=== PATIENT | female | born 1960 | race African-American/Black ===

== ENCOUNTER 2019-06-09 13:59 | Inpatient (IN) | payer OTHER ==
[2019-06-09] VITALS (7 sets, daily range): BP systolic 104–122; BP diastolic 72–87
[~2019-06-09] VITALS: Ht 165.1 cm; Wt 40.8 kg
--- NOTE | 2019-06-09 14:19 | Emergency Room Report ---
History of Present Illness General Chief Complaint: General Complaint Source: Patient Present Illness HPI Disclaimer: Please note that this report is being documented using [employer] technology. This can lead to erroneous entry secondary to incorrect interpretation by the dictating instrument. HPI: 59-year-old female with a history of pancreatic cancer with multiple metastases currently undergoing chemotherapy presents for evaluation of palpitations, hypotension and weakness. Patient was at rest watching television on the couch earlier this morning when she felt her heart beating out of her chest. She denied chest pain at that time however states she has had some intermittent chest pain recently and may have been diagnosed with a pulmonary embolism last month at an outside facility. She denied any shortness of breath. The palpitations have now resolved. When EMS found her she was hypotensive and weak. Systolic blood pressures were in the mid 80s. She responded to an IV fluid bolus en route. The patient states she has not been eating or drinking very much lately due to lack of appetite secondary to her chemotherapy medications. Denies any recent vomiting or diarrhea. Denies fevers, chills, cough, shortness of breath, leg swelling. Currently she is chest pain-free. PMH: Pancreatic cancer with metastases PSH: Tumor resection Allergies: Denies Social Hx: Denies drug, tobacco alcohol use Allergies: Coded Allergies: No Known Allergies (Unverified , 06/09/19) Nursing Documentation-PMH Hx Cancer: Yes - PANCREATIC CANCER Review of Systems All Other Systems: negative except mentioned in HPI Physical Exam Vital Signs Date Time Temp Pulse Resp B/P (MAP) Pulse Ox O2 Delivery O2 Flow Rate FiO2 06/09/19 13:49 97.3 102 20 102/60 (74) 97 Room Air General: Awake and alert, no acute distress. Frail and cachectic, appears fatigued HEENT: NC/AT. EOMI. PERRLA. Pale conjunctiva. Dry mucous membranes Chest Wall: No tenderness, no deformity. Access port in the right upper chest Cardiovascular: Tachycardic. S1 and S2 normal. No murmur appreciated Resp: Mild tachypnea. Normal work of breathing. No cough, wheezing or crackles appreciated Abdomen: Abdomen is soft, nondistended. Nontender Skin: Intact. No abrasions, laceration or rash over the exposed skin MSK: Low muscle bulk. Normal tone. Moving all extremities. No obvious deformity. Neuro: Awake and alert. Mentating appropriately. Medical Decision Making Diagnostic Impression: Primary Impression: Palpitations Additional Impressions: Near syncope Failure to thrive Acidosis Thrombocytosis Microcytic anemia Elevated alkaline phosphatase level Elevated CK Hypotension ER Course 59-year-old female currently undergoing chemotherapy for metastatic pancreatic cancer presents for evaluation of palpitations, tachycardia, hypotension and fatigue. She has not been eating and drinking very much and this may be related to dehydration, lecture light abnormalities, malnutrition. She is tachycardic but no longer complaining of palpitations or chest pain though she has had intermittent chest pain over the past few weeks. She states she may have been diagnosed with a pulmonary embolism however she has not fully sure. Will wait for family to provide additional information when they arrived. She has not hypoxic and denies any shortness of breath currently. We will start a broad metabolic and infectious work-up for weakness and hypotension. Blood pressures are stable on arrival though she was noted to be hypotensive in the 80s. She would likely require admission. Will provide additional IV bolus. Laboratory Tests Test 06/09/19 14:35 06/09/19 15:00 White Blood Count 6.9 K/UL (4.8-10.8) Red Blood Count 4.98 M/UL (4.20-5.40) Hemoglobin 10.1 G/DL (12.0-16.0) L Hematocrit 34.8 % (37.0-47.0) L Mean Corpuscular Volume 70 FL (80-99) L Mean Corpuscular Hemoglobin 20.3 PG (27.0-31.0) L Mean Corpuscular Hemoglobin Concent 29.1 G/DL (32.0-36.0) L Red Cell Distribution Width 21.0 % (11.6-14.8) H Platelet Count 509 K/UL (150-450) H Mean Platelet Volume 8.4 FL (6.5-10.1) Neutrophils (%) (Auto) % (45.0-75.0) Lymphocytes (%) (Auto) % (20.0-45.0) Monocytes (%) (Auto) % (1.0-10.0) Eosinophils (%) (Auto) % (0.0-3.0) Basophils (%) (Auto) % (0.0-2.0) Differential Total Cells Counted 100 Neutrophils % (Manual) 68 % (45-75) Lymphocytes % (Manual) 21 % (20-45) Monocytes % (Manual) 9 % (1-10) Eosinophils % (Manual) 2 % (0-3) Basophils % (Manual) 0 % (0-2) Band Neutrophils 0 % (0-8) Platelet Estimate Increased H Platelet Morphology Giant Platelets Occasional Polychromasia 2+ Hypochromasia 2+ Anisocytosis 3+ Microcytosis 2+ Prothrombin Time 12.3 SEC (9.30-11.50) H Prothrombin Time INR 1.2 (0.9-1.1) H PTT 27 SEC (23-33) Sodium Level 144 MMOL/L (136-145) Potassium Level 4.0 MMOL/L (3.5-5.1) Chloride Level 108 MMOL/L (98-107) H Carbon Dioxide Level 26 MMOL/L (21-32) Anion Gap 10 mmol/L (5-15) Blood Urea Nitrogen 9 mg/dL (7-18) Creatinine 0.7 MG/DL (0.55-1.30) Estimate Glomerular Filtration Rate > 60 mL/min (>60) Glucose Level 116 MG/DL (74-106) H Uric Acid 3.6 MG/DL (2.6-7.2) Calcium Level 9.2 MG/DL (8.5-10.1) Phosphorus Level 4.0 MG/DL (2.5-4.9) Magnesium Level 1.9 MG/DL (1.8-2.4) Total Bilirubin 0.3 MG/DL (0.2-1.0) Aspartate Amino Transferase (AST) 95 U/L (15-37) H Alanine Aminotransferase (ALT) 19 U/L (12-78) Alkaline Phosphatase 386 U/L (46-116) H Total Creatine Kinase 631 U/L (26-308) H Troponin I 0.035 ng/mL (0.000-0.056) Total Protein 6.6 G/DL (6.4-8.2) Albumin 2.1 G/DL (3.4-5.0) L Globulin 4.5 g/dL Albumin/Globulin Ratio 0.5 (1.0-2.7) L Lactic Acid Level Pending EKG Diagnostic Results EKG Time: 14:15 Rate: tachycardiac Rhythm: NSR ST Segments: no acute changes Other Impression Sinus tachycardia, rate in the 120s. Normal axis, normal intervals, no ST segment changes. Rhythm Strip Diag. Results Rhythm Strip Time: 14:15 EP Interpretation: yes Rate: 120s Rhythm: NSR, no PVC's, no ectopy Chest X-Ray Diagnostic Results Chest X-Ray Diagnostic Results : Chest X-Ray Ordered: Yes # of Views/Limited/Complete: 1 View Indication: Chest Pain Interpretation: no consolidation, no effusion, no pneumothorax Impression: No acute disease Electronically Signed by: Electronically signed by Dr. Toney Duncan Reevaluation Time: 14:25 Last Vital Signs Date Time Temp Pulse Resp B/P (MAP) Pulse Ox O2 Delivery O2 Flow Rate FiO2 06/09/19 13:49 97.3 102 20 102/60 (74) 97 Room Air Reevaluation Impression Family arrived and stated the patient was on Eliquis for a pulmonary embolism diagnosed several weeks ago. We will repeat a CTA of the chest to rule out hemodynamically significant PE 1654: Labs show microcytic anemia with a hemoglobin of 10.1 and MCV of 70. Elevated platelet count at 509. Labs show an elevated lactate of 2.4 as well as an elevated CK and alkaline phosphatase. Uric acid is within normal limits at 3.6. The patient continues to see receive IV fluids. No evidence of urinary tract infection. CT of the chest does not show significant pulmonary embolism. The patient will be transferred according to their insurance plan and stable for admission to telemetry service. I discussed with Dr. Nielsen who will facilitate transfer. Family was updated bedside. They understand agree with this treatment plan. 1830 Unable to arrange transfer for the patient. She will be admitted to our facility for further management Disposition: ADMITTED INPATIENT Condition: Serious Toney Duncan MD Jun 09, 2019 14:19
--- NOTE | 2019-06-09 14:20 | NUR ---
ED Nurse Note: Patient was brought in to ER by RA due to hypotension, patient was c/o palpitation and dizziness. Patient denies any chest pain or SOB at this time. Patient is awake, aox4. Patient states she has not been eating or drinking adequately due to no appetite. Patient has hx of pancreatic cancer, has right subclavian port a cath for chemo.
[2019-06-09] MEDS ORDERED: OMEPRAZOLE20 M2 ORAL ×2 (14:26→20:23)
[2019-06-09] MEDS ORDERED: ELIQUIS2.5 MG PO (14:26)
[2019-06-09] MEDS ORDERED: IBUPROFEN600 MG ORAL (14:26)
[2019-06-09] MEDS ORDERED: MORPHINE IR15 MG ORAL ×2 (14:26→20:21)
[2019-06-09] MEDS ORDERED: NORCO 5-325 TA1 EACH ORAL (14:26)
[2019-06-09] MEDS ORDERED: Omnipaue 350mg/ml 100ml vial INJ PRN (14:30)
[2019-06-09 15:12] LABS: HEMATOCRIT 34.8 % (37.0-47.0); HEMOGLOBIN 10.1 G/DL (12.0-16.0); MEAN CORPUSCULAR VOLUME 70 FL (80-99); PLATELET COUNT 509 K/UL (150-450); RED BLOOD COUNT 4.98 M/UL (4.20-5.40); WHITE BLOOD COUNT 6.9 K/UL (4.8-10.8)
[2019-06-09 15:22] LABS: INR 1.2 (0.9-1.1)
[2019-06-09 15:24] LABS: ANION GAP 10 mmol/L (5-15); BLOOD UREA NITROGEN 9 mg/dL (7-18); CALCIUM 9.2 MG/DL (8.5-10.1); CARBON DIOXIDE 26 MMOL/L (21-32); CHLORIDE 108 MMOL/L (98-107); CREATININE 0.7 MG/DL (0.55-1.30); SODIUM 144 MMOL/L (136-145)
[2019-06-09 15:28] LABS: ALANINE AMINOTRANSFERASE 19 U/L (12-78); ALBUMIN 2.1 G/DL (3.4-5.0); ALBUMIN/GLOBULIN RATIO 0.5 (1.0-2.7); ALKALINE PHOSPHATASE 386 U/L (46-116); ASPARTATE AMINO TRANSFERASE 95 U/L (15-37); BILIRUBIN,TOTAL 0.3 MG/DL (0.2-1.0); CREATINE KINASE 631 U/L (26-308)
--- NOTE | 2019-06-09 15:41 | Diagnostic Imaging Report ---
Indication: Chest pain Comparison: None A single view chest radiograph was obtained. Findings: No definite infiltrate or pulmonary vascular congestion identified. The heart is normal in size. There is a right chest port in good position.. The aorta is mildly enlarged consistent with atherosclerotic vascular disease. The bones are osteopenic. Impression: No acute disease
--- NOTE | 2019-06-09 16:05 | NUR ---
ED Nurse Note: Patient back from CT.
[2019-06-09 16:34] LABS: APPEARANCE,URINE CLEAR; BILIRUBIN, URINE NEGATIVE (NEGATIVE); GLUCOSE, URINE (UA) NEGATIVE (NEGATIVE); KETONES,URINE NEGATIVE (NEGATIVE); LEUKOCYTE ESTERASE ,URINE NEGATIVE (NEGATIVE); NITRITE,URINE NEGATIVE (NEGATIVE); PH,URINE 5 (4.5-8.0); PROTEIN,URINE NEGATIVE (NEGATIVE); UROBILINOGEN,URINE 1 MG/DL (0.0-1.0)
[2019-06-09 16:36] LABS: COLOR,URINE YELLOW
--- NOTE | 2019-06-09 16:41 | Diagnostic Imaging Report ---
Indication: Chest pain Technique: Continuous helical transaxial imaging of the chest was obtained from the thoracic inlet to the upper abdomen during rapid intravenous contrast administration. Arterial phase of enhancement obtained. Coronal 2-D reformats were also obtained and maximum intensity projection images in multiple planes. Study obtained in a Siemens sensation [address] Automatic Exposure Control was utilized. Total Dose length Product (DLP): 302.[address] Dose Index Volume (CTDIvol): 21.4 mGy Comparison: None Findings: Pulmonary artery is reasonably opacified and there is no evidence of pulmonary embolus. The aorta is mildly ectatic without evidence of aneurysm or dissection. The study is significantly degraded by the presence of a breathing motion. There are scattered lung nodules consistent with metastatic neoplasm within both lungs. The liver is moderately hypodense. Pneumobilia noted. Patient is cachectic. No adenopathy appreciated within the chest. There is a right chest port which is in good position. There is a T6 compression fracture acuity indeterminate. The bones are heterogeneous with areas of a lucency suspicious for metastatic neoplasm. IMPRESSION: Suboptimal evaluation of the pulmonary artery without obvious evidence for pulmonary embolus. Study also limited by motion. Aorta without evidence of dissection or aneurysm. Pulmonary nodules suspicious for metastatic neoplasm. Heterogeneous lucency scattered throughout the osseous structures consistent with metastatic neoplasm. Suggest correlation with bone scan. Mild compression fracture deformity of the T6 vertebra, acuity indeterminate. Moderate fatty liver. Pneumobilia. Right chest port The CT scanner at [facility] is accredited by the [employer] and the scans are performed using dose optimization techniques as appropriate to a performed exam including Automatic Exposure control.
--- NOTE | 2019-06-09 17:15 | NUR ---
ED Nurse Note: Patient c/o lower back pain. Dr. Velazquez notified.
[2019-06-09] MEDS ORDERED: Morphine Sulfate 4mg/ml Inj (IV USE ONLY) IVP ONE (17:45)
--- NOTE | 2019-06-09 18:13 | NUR ---
ED Nurse Note: Patient c/o pain in left hand IV site. removed IV. right AC IV, asymptomatic.
--- NOTE | 2019-06-09 19:05 | NUR ---
ED Nurse Note: Received report from URVASHI Milner. Pt alert, oriented, verbally responisve. 108/86 BP. No SOB. VSS.
--- NOTE | 2019-06-09 19:45 | NUR ---
Lv white in EDM - 06/09/19 at 2034 by ASHWIN ED Note: Report given to Marlene LANDIN from [facility].
--- NOTE | 2019-06-09 19:45 | NUR ---
ED Nurse Note: Report given to Marlene LANDIN from Telemetry.
--- NOTE | 2019-06-09 19:48 | NUR ---
TRANSFER TO FLOOR: Patient transferred to Telemetry. Report given to Marlene LANDIN. Pt alert and oriented, verbally responsive. No SOB. BP 108/ 86 and HR 119, MD aware. IV line on right AC 20g patent and intact. No skin issues.Family aware of transfer.
[2019-06-09] MEDS ORDERED: NORCO 10-325 T1 EACH ORAL (20:21)
[2019-06-09] MEDS ORDERED: MOTRIN IB200 MG ORAL (20:21)
--- NOTE | 2019-06-09 20:35 | History and Physical ---
History of Present Illness General Date patient seen: Jun 09, 2019 Reason for Hospitalization: General Complaint Present Illness HPI There is a 59-year-old female with a past medical history of stage IV pancreatic cancer with metastases to lungs and bones on chemotherapy presents for evaluation of palpitations, hypotension and weakness. Patient was at rest watching television on the couch earlier this morning when she felt her heart beating out of her chest. She denied chest pain at that time however states she has had some intermittent chest pain recently and may have been diagnosed with a pulmonary embolism last month at an outside facility. She denied any shortness of breath. The palpitations have now resolved. When EMS found her she was hypotensive and weak. Systolic blood pressures were in the mid 80s. She responded to an IV fluid bolus en route. The patient states she has not been eating or drinking very much lately due to lack of appetite secondary to her chemotherapy medications. Denies any recent vomiting or diarrhea. Denies fevers, chills, cough, shortness of breath, leg swelling. Currently she is chest pain-free. Patient is also complaining of right leg pain for the past month. No swelling or trauma. Constant, 5 out of 10, nonradiating. In the ER the patient had a temperature 98.1 pulse 81 blood pressure 104/81 respirations 19 saturating 100% on room air. CBC unremarkable. Laird panel remarkable for elevated alk phos 386, CK 631 initial troponin 0 0.035 initial lactate 2.4 which improved to 1.8 with fluids. UA negative, chest x-ray negative. EKG sinus tachycardic. CT pulmonary angiogram negative for pulmonary embolism but showed pulmonary and rib metastasis as well as old T6 compression fracture Allergies: none Meds: reviewed Pmhx: see HPI Surgical Hx: 2016 right inguinal hernia repair and tumor resection and SBO Family history: no cancers Social hx: No tobacco, etoh, or drug use Allergies: Coded Allergies: No Known Allergies (Unverified , 06/09/19) Medication History Scheduled Apixaban (Eliquis), 2.5 MG PO BID, (Reported) Ibuprofen* (Motrin Ib*), 200 MG ORAL Q6H, (Reported) Morphine HCl (Morphine Sulfate ER), 15 MG ORAL Q12HR, (Reported) Omeprazole (Omeprazole), 20 MG ORAL DAILY, (Reported) Omeprazole (Omeprazole), 20 MG ORAL DAILY, (Reported) Scheduled PRN Hydrocodone Bit/Acetaminophen 10-325* ([place] 10-325*), 1 TAB ORAL Q6H PRN for Breakthrough Pain, (Reported) Patient History Healthcare decision maker Resuscitation status Full Advanced Directive on File Review of Systems Constitutional: Reports: malaise, weakness; Denies: see HPI, chills, sweats, fever, other Eye: Denies: see HPI, eye pain, blurred vision, tearing, double vision, nose pain, nose congestion, acuity changes, discharge, other ENT: Denies: see HPI, ear pain, ear discharge, nose pain, nose congestion, throat pain, throat swelling, mouth pain, hearing loss, nasal discharge, other Respiratory: Denies: see HPI, cough, orthopnea, shortness of breath, stridor, wheezing, MOON, sputum, other Cardiovascular: Denies: see HPI, chest pain, edema, palpitations, syncope, PND , other Gastrointestinal: Denies: see HPI, abdominal pain, constipation, diarrhea, nausea, vomiting, melena, hematemesis, other Genitourinary: Denies: see HPI, discharge, dysuria, frequency, hematuria, pain , retention, incontinence, urgency, vag bleed/dc, other Musculoskeletal: Denies: see HPI, back pain, gout, joint pain, joint swelling, muscle pain, muscle stiffness, other Skin: Denies: see HPI, rash, change in color, change in hair/nails, dryness, lesions, other Psychiatric: Denies: see HPI, prior hx, anxiety, depressed feelings, emotional problems, SI, HI, hallucinations, other Neurological: Denies: see HPI, headache, numbness, paresthesia, seizure, tingling, tremors, focal weakness, syncope, dizziness, other Endocrine: Denies: see HPI, excessive sweating, flushing, intolerance to temperature, increased thirst, increased urine, unexplained weight loss, other Hematologic/Lymphatic: Denies: see HPI, anemia, blood clots, easy bleeding, easy bruising, swollen glands, diathesis, other Physical Exam General Appearance: WD/WN, no apparent distress, other - cacthetcic Lines, tubes and drains: peripheral HEENT: normocephalic, atraumatic, anicteric Neck: non-tender, normal alignment, supple Respiratory/Chest: chest wall non-tender, lungs clear, normal breath sounds, no respiratory distress, other - Right Port-A-Cath in place without surrounding erythema warmth or tenderness Cardiovascular/Chest: normal peripheral pulses, normal rate, regular rhythm, no JVD Abdomen: normal bowel sounds, non tender, soft, no organomegaly, no mass Extremities: normal range of motion, non-tender, normal inspection, other - Right hip tender to palpation, no deformity seen Skin Exam: normal pigmentation, warm/dry 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, no motor/sensory deficits, alert, oriented x 3 Lymphatic: anterior cervical - No lymphadenopathy Musculoskeletal: normal muscle bulk, no effusion Last 24 Hour Vital Signs Date Time Temp Pulse Resp B/P (MAP) Pulse Ox O2 Delivery O2 Flow Rate FiO2 06/09/19 18:00 117 20 118/87 100 Room Air 06/09/19 17:00 116 19 119/80 100 Room Air 06/09/19 16:00 120 21 122/75 100 Room Air 06/09/19 15:00 122 21 110/77 100 Room Air 06/09/19 14:10 81 19 Room Air 06/09/19 14:10 98.1 121 18 104/81 100 Room Air 06/09/19 13:49 97.3 102 20 102/60 (74) 97 Room Air Laboratory Tests Test 06/09/19 14:35 06/09/19 15:00 06/09/19 16:15 06/09/19 16:45 White Blood Count 6.9 K/UL (4.8-10.8) Red Blood Count 4.98 M/UL (4.20-5.40) Hemoglobin 10.1 G/DL (12.0-16.0) L Hematocrit 34.8 % (37.0-47.0) L Mean Corpuscular Volume 70 FL (80-99) L Mean Corpuscular Hemoglobin 20.3 PG (27.0-31.0) L Mean Corpuscular Hemoglobin Concent 29.1 G/DL (32.0-36.0) L Red Cell Distribution Width 21.0 % (11.6-14.8) H Platelet Count 509 K/UL (150-450) H Mean Platelet Volume 8.4 FL (6.5-10.1) Neutrophils (%) (Auto) % (45.0-75.0) Lymphocytes (%) (Auto) % (20.0-45.0) Monocytes (%) (Auto) % (1.0-10.0) Eosinophils (%) (Auto) % (0.0-3.0) Basophils (%) (Auto) % (0.0-2.0) Differential Total Cells Counted 100 Neutrophils % (Manual) 68 % (45-75) Lymphocytes % (Manual) 21 % (20-45) Monocytes % (Manual) 9 % (1-10) Eosinophils % (Manual) 2 % (0-3) Basophils % (Manual) 0 % (0-2) Band Neutrophils 0 % (0-8) Platelet Estimate Increased H Platelet Morphology Giant Platelets Occasional Polychromasia 2+ Hypochromasia 2+ Anisocytosis 3+ Microcytosis 2+ Prothrombin Time 12.3 SEC (9.30-11.50) H Prothromb Time International Ratio 1.2 (0.9-1.1) H Activated Partial Thromboplast Time 27 SEC (23-33) Sodium Level 144 MMOL/L (136-145) Potassium Level 4.0 MMOL/L (3.5-5.1) Chloride Level 108 MMOL/L (98-107) H Carbon Dioxide Level 26 MMOL/L (21-32) Anion Gap 10 mmol/L (5-15) Blood Urea Nitrogen 9 mg/dL (7-18) Creatinine 0.7 MG/DL (0.55-1.30) Estimat Glomerular Filtration Rate > 60 mL/min (>60) Glucose Level 116 MG/DL (74-106) H Uric Acid 3.6 MG/DL (2.6-7.2) Calcium Level 9.2 MG/DL (8.5-10.1) Phosphorus Level 4.0 MG/DL (2.5-4.9) Magnesium Level 1.9 MG/DL (1.8-2.4) Total Bilirubin 0.3 MG/DL (0.2-1.0) Aspartate Amino Transf (AST/SGOT) 95 U/L (15-37) H Alanine Aminotransferase (ALT/SGPT) 19 U/L (12-78) Alkaline Phosphatase 386 U/L (46-116) H Total Creatine Kinase 631 U/L (26-308) H Troponin I 0.035 ng/mL (0.000-0.056) Total Protein 6.6 G/DL (6.4-8.2) Albumin 2.1 G/DL (3.4-5.0) L Globulin 4.5 g/dL Albumin/Globulin Ratio 0.5 (1.0-2.7) L Lactic Acid Level 2.40 mmol/L (0.4-2.0) H 1.80 mmol/L (0.66-2.22) Urine Color Yellow Urine Appearance Clear Urine pH 5 (4.5-8.0) Urine Specific [place] 1.015 (1.005-1.035) Urine Protein Negative (NEGATIVE) Urine Glucose (UA) Negative (NEGATIVE) Urine Ketones Negative (NEGATIVE) Urine Blood Negative (NEGATIVE) Urine Nitrite Negative (NEGATIVE) Urine Bilirubin Negative (NEGATIVE) Urine Urobilinogen 1 MG/DL (0.0-1.0) H Urine Leukocyte Esterase Negative (NEGATIVE) Height (Feet): 5 Height (Inches): 5.00 Weight (Pounds): 90 Medications Current Medications Medications (Trade) Dose Ordered Sig/Mari Route PRN Reason Start Time Stop Time Status Last Admin Dose Admin Iohexol (Omnipaque) 100 mg NOW PRN INJ Radiology Procedure 06/09/19 14:30 06/11/19 14:23 Assessment/Plan Problem List: (1) Hypotension ICD Codes: I95.9 - Hypotension, unspecified SNOMED: 31807501 (2) Sinus tachycardia ICD Codes: R00.0 - Tachycardia, unspecified SNOMED: 81704480 (3) Near syncope ICD Codes: R55 - Syncope and collapse SNOMED: 384315857 (4) Failure to thrive SNOMED: 84143884 (5) Palpitations ICD Codes: R00.2 - Palpitations SNOMED: 38297914 (6) Elevated alkaline phosphatase level ICD Codes: R74.8 - Abnormal levels of other serum enzymes SNOMED: 767948323 (7) Elevated CK ICD Codes: R74.8 - Abnormal levels of other serum enzymes SNOMED: 127932369 (8) Thrombocytosis ICD Codes: D47.3 - Essential (hemorrhagic) thrombocythemia SNOMED: 0606833 (9) Microcytic anemia ICD Codes: D50.9 - Iron deficiency anemia, unspecified SNOMED: 796638289 (10) Acidosis ICD Codes: E87.2 - Acidosis SNOMED: 50756737 Status: progressing Assessment/Plan: Is a 59 year old female with a past medical history of stage IV pancreatic cancer with metastases to bones and lungs on chemotherapy presenting with palpitations, hypotension which resolved with IV fluids #hypotension, suspect 2/2 dehydration. no other SIRS criteria. Do not suspect infection at this point. #lactic acidosis secondary to malignancy and dehydration. Do not suspect infection at this point #near syncope #palpitations suspected 2/2 dehydration #sinus tachycardia suspected 2/2 dehydration -Admit to telemetry 2D echocardiogram Trend troponins Blood cultures x2 Trend lactate Holding off on antibiotics for now Normal saline at 100 cc/h #Right leg pain, rule out DVT. Duplex venous ultrasound of right leg #Stage IV pancreatic cancer mets to bone and lung on chemotherapy >PCP Dr. Wilhelm >Oncologist Aden Bauman - outpatient f/u FENPPX DVTPPX: lovenox GI PPX: None needed Fluids: As above Diet: Regualr Lines: Peripheral PT/OT: pending Code status: Fulle Dispo: Home with home health vs. SNF Reason for Continued Hospitalization: Hypotension 72 minutes spent on this encounter. Discussed with RN, patient, ED staff. > 50% spent on counseling and care coordination. Time of note may not reflect time patient was seen. Telly Glover D.O. Jun 09, 2019 20:35
--- NOTE | 2019-06-09 20:39 | NUR ---
NURSE NOTES: Called Dr. Carrion's exchange for admission orders. Awaiting callback.
[2019-06-09] MEDS ORDERED: Miralax 17gm pkt ORAL PRN (20:45)
--- NOTE | 2019-06-09 20:56 | NUR ---
NURSE NOTES: Received orders from Dr. You to continue Morphine Sulfate ER 15 mg PO Q12hr medication. Noted and carried out.
[2019-06-09] MEDS ORDERED: Enoxaparin 40mg Inj SUBQ SCH (21:00)
[2019-06-09] MEDS: HYDROcodone/Acetamin 10/325 tab ORAL PRN (21:26)
[2019-06-10] VITALS: BP 113/76
[2019-06-10] MEDS: HYDROcodone/Acetamin 5/325 tab ORAL PRN (00:06)
--- NOTE | 2019-06-10 00:18 | NUR ---
NURSE NOTES: Called Dr. Carrion's exchange regarding patient's request for IV pain medication. Awaiting callback.
--- NOTE | 2019-06-10 00:56 | NUR ---
NURSE NOTES: Received order from Dr. You for Dilaudid 1mg IV Q4hr PRN for breakthrough pain. Noted and carried out.
--- NOTE | 2019-06-10 02:00 | NUR ---
NURSE NOTES: Notified Dr. You regarding patient's troponin level of 0.057. Awaiting callback for any further orders.
[2019-06-10] MEDS: HYDROmorphone 1mg/ml Carpuject IVP PRN ×4 (02:18→19:18)
[2019-06-10 04:00] VITALS: BP 114/75
[2019-06-10] MEDS: HYDROcodone/Acetamin 10/325 tab ORAL PRN ×2 (05:43→21:21)
--- NOTE | 2019-06-10 07:15 | NUR ---
HAND-OFF: Report given to URVASHI Powers. Patient in stable condition.
--- NOTE | 2019-06-10 07:25 | NUR ---
NURSE NOTES: Received report from Renate/RN, Patient is awake, Lying semi-magana's, resting comfortably. A/O x4. On room air, breathing even and unlabored. No acute distress/SOB noted at this time. Able to make needs known. at bedside. IV site patent, no bleeding or infiltration noted. Encourage to use call light when needed. Bed in low position and locked, bed alarm engaged, side-rails up x3. Call light within reach. Will continue plan of care.
[2019-06-10 08:00] VITALS: BP 120/86
--- NOTE | 2019-06-10 08:35 | NUR ---
RD ASSESSMENT & RECOMMENDATIONS SEE CARE ACTIVITY FOR COMPLETE ASSESSMENT DAILY ESTIMATED NEEDS: Needs based on Cancer, underweight 45kg 30-40 kcals/kg 7871-3286 total kcals 1-2 g protein/kg 45-90 g total protein 25-30 mL/kg 4400-2394 total fluid mLs NUTRITION DIAGNOSIS: Increased kcal needs r/t underweight status and cancer as evidenced by dx of stage 4 pancreatic cancer w/ recent chemotherapy treatment, reported poor po intake, pt w/ BMI underweight per guidelines, @80% of [place] Body Weight. CURRENT DIET: Regular PO DIET RECOMMENDATIONS: Maintain Regular diet as tolerated ADDITIONAL RECOMMENDATIONS: 1) Add Ensure 1 bottle BID in b/w meals (350 kcal/20g pro each) 2) Obtain a STANDING scale wt for accuracy + Weekly weights 3) Add snacks in b/w meals 4) Monitor BG and LFT's, need for dietary restrictions
[2019-06-10] MEDS: MS Contin 15mg tab ORAL SCH ×2 (08:36→21:20)
[2019-06-10] MEDS: Eliquis 2.5mg tablet ORAL SCH ×2 (08:37→17:35)
[2019-06-10 08:46] LABS: BASOPHILS % (AUTO) 1.5 % (0.0-2.0); EOSINOPHILS % (AUTO) 2.6 % (0.0-3.0); HEMATOCRIT 31.2 % (37.0-47.0); LYMPHOCYTES % (AUTO) 11.8 % (20.0-45.0); MEAN CORPUSCULAR VOLUME 68 FL (80-99); MONOCYTES % (AUTO) 12.2 % (1.0-10.0); NEUTROPHILS % (AUTO) 71.9 % (45.0-75.0); PLATELET COUNT 402 K/UL (150-450); RED BLOOD COUNT 4.58 M/UL (4.20-5.40); WHITE BLOOD COUNT 6.5 K/UL (4.8-10.8)
[2019-06-10 08:53] LABS: ANION GAP 9 mmol/L (5-15); BLOOD UREA NITROGEN 5 mg/dL (7-18); CALCIUM 8.6 MG/DL (8.5-10.1); CARBON DIOXIDE 26 MMOL/L (21-32); CHLORIDE 110 MMOL/L (98-107); CREATININE 0.5 MG/DL (0.55-1.30); POTASSIUM 4.3 MMOL/L (3.5-5.1); SODIUM 145 MMOL/L (136-145)
[2019-06-10] MEDS ORDERED: Morphine IR 15mg tab ORAL SCH (09:00)
[2019-06-10 09:23] LABS: CREATINE KINASE 499 U/L (26-308)
--- NOTE | 2019-06-10 09:49 | NUR ---
*-* INSURANCE *-* ALL AVIALABLE CLINICALS HAVE BEEN FAXED TO: [facility] TRACKING#[id number] CM:ANYI #[phone] FAX#[phone] REVIEWS/CLINICALS
[2019-06-10 12:00] VITALS: BP 114/81
--- NOTE | 2019-06-10 13:04 | General Progress Note ---
Assessment/Plan Problem List: (1) Hypotension ICD Codes: I95.9 - Hypotension, unspecified SNOMED: 01451158 (2) Sinus tachycardia ICD Codes: R00.0 - Tachycardia, unspecified SNOMED: 36158076 (3) Near syncope ICD Codes: R55 - Syncope and collapse SNOMED: 579865165 (4) Failure to thrive SNOMED: 02369481 (5) Palpitations ICD Codes: R00.2 - Palpitations SNOMED: 65977207 (6) Elevated alkaline phosphatase level ICD Codes: R74.8 - Abnormal levels of other serum enzymes SNOMED: 919407183 (7) Elevated CK ICD Codes: R74.8 - Abnormal levels of other serum enzymes SNOMED: 687044135 (8) Thrombocytosis ICD Codes: D47.3 - Essential (hemorrhagic) thrombocythemia SNOMED: 6213156 (9) Microcytic anemia ICD Codes: D50.9 - Iron deficiency anemia, unspecified SNOMED: 482708817 (10) Acidosis ICD Codes: E87.2 - Acidosis SNOMED: 12582391 Status: progressing Assessment/Plan: Is a 59 year old female with a past medical history of stage IV pancreatic cancer with metastases to bones and lungs on chemotherapy presenting with palpitations, hypotension which resolved with IV fluids #hypotension, suspect 2/2 dehydration. no other SIRS criteria. Do not suspect infection at this point. Resolved- #lactic acidosis secondary to malignancy and dehydration. Do not suspect infection at this point -resolved #near syncope -no further episodes while inpatient #palpitations suspected 2/2 dehydration -resolved #sinus tachycardia suspected 2/2 dehydration -resolved > 2D echocardiogram normal > Troponins negative -Admit to telemetry Blood cultures x2- no growth Holding off on antibiotics for now Normal saline at 100 cc/h #Right leg pain, rule out DVT. - Duplex venous ultrasound of right leg - negative #Stage IV pancreatic cancer mets to bone and lung on chemotherapy >PCP Dr. Wilhelm >Oncologist Aden Bauman - outpatient f/u #Low back pain, suspect muscle strain, bone mass. -Continue home pain regimen - Start lidocaine patch #Hypomagnesemia -Replete PRN FENPPX DVTPPX: lovenox GI PPX: None needed Fluids: As above Diet: Regualr Lines: Peripheral PT/OT: pending Code status: Fulle Dispo: Home with home health vs. SNF Reason for Continued Hospitalization: Hypotension. Patient and family would like to wait until we can to be discharged so that someone is able to take care of her. 38 minutes spent on this encounter. Discussed with RN, patient, ED staff. > 50% spent on counseling and care coordination. Time of note may not reflect time patient was seen. Subjective Date patient seen: Jun 10, 2019 Constitutional: Denies: chills, diaphoresis, fever, malaise, weakness, other HEENT: Denies: eye pain, blurred vision, tearing, double vision, ear pain, ear discharge, nose pain, nose congestion, throat pain, throat swelling, mouth pain , mouth swelling, other Cardiovascular: Denies: chest pain, edema, irregular heart rate, lightheadedness, palpitations, syncope, other Respiratory: Denies: cough, orthopnea, shortness of breath, SOB with excertion , SOB at rest, sputum, stridor, wheezing, other Gastrointestinal/Abdominal: Denies: abdomen distended, abdominal pain, black stools, tarry stools, blood in stool, constipated, diarrhea, difficulty swallowing, nausea, poor appetite, poor fluid intake, rectal bleeding, vomiting , other Genitourinary: Denies: burning, discharge, frequency, flank pain, hematuria, incontinence, pain, urgency, other Neurologic/Psychiatric: Denies: anxiety, depressed, emotional problems, headache, numbness, paresthesia, pre-existing deficit, seizure, tingling, tremors, weakness, other Endocrine: Denies: excessive sweating, flushing, intolerance to cold, intolerance to heat, increased hunger, increased thirst, increased urine, unexplained weight gain, unexplained weight loss, other Hematologic/Lymphatic: Denies: anemia, easy bleeding, easy bruising, other Allergies: Coded Allergies: No Known Allergies (Unverified , 06/09/19) Subjective No acute events overnight per nursing. Patient's blood pressure remained normal. Weakness is improved. Patient is complaining of low back pain paraspinal. She has had this for approximately 2 months. No trauma. Constant , 5 out of 10, nonradiating. Described as aching sensation. Denies any bowel or bladder incontinence. Or saddle anesthesia. Objective Last 24 Hour Vital Signs Date Time Temp Pulse Resp B/P (MAP) Pulse Ox O2 Delivery O2 Flow Rate FiO2 06/10/19 12:00 99.2 81 19 114/81 (92) 98 06/10/19 12:00 97 06/10/19 09:00 Room Air 06/10/19 08:00 96.6 102 18 120/86 (97) 100 06/10/19 08:00 97 06/10/19 04:00 92 06/10/19 04:00 98.7 98 16 114/75 (88) 100 06/10/19 00:00 97.8 103 18 113/76 (88) 98 06/10/19 00:00 101 06/09/19 22:15 Room Air 06/09/19 20:43 122 06/09/19 20:00 99.0 116 116/72 (87) 06/09/19 19:48 98.5 119 19 108/86 99 Room Air 06/09/19 19:06 98.5 119 19 108/86 99 Room Air 06/09/19 18:00 117 20 118/87 100 Room Air 06/09/19 17:00 116 19 119/80 100 Room Air 06/09/19 16:00 120 21 122/75 100 Room Air 06/09/19 15:00 122 21 110/77 100 Room Air 06/09/19 14:10 81 19 Room Air 06/09/19 14:10 98.1 121 18 104/81 100 Room Air 06/09/19 13:49 97.3 102 20 102/60 (74) 97 Room Air Intake and Output 06/09/19 06/10/19 18:59 06:59 Intake Total 2000 ml 850 ml Balance 2000 ml 850 ml Intake Oral 0 ml IV Total 2000 ml 850 ml # Voids 1 3 # Bowel Movements 1 Laboratory Tests 06/09/19 14:35: White Blood Count 6.9, Red Blood Count 4.98, Hemoglobin 10.1L, Hematocrit 34.8L , Mean Corpuscular Volume 70L, Mean Corpuscular Hemoglobin 20.3L, Mean Corpuscular Hemoglobin Concent 29.1L, Red Cell Distribution Width 21.0H, Platelet Count 509H, Mean Platelet Volume 8.4, Neutrophils (%) (Auto) , Lymphocytes (%) (Auto) , Monocytes (%) (Auto) , Eosinophils (%) (Auto) , Basophils (%) (Auto) , Differential Total Cells Counted 100, Neutrophils % ( Manual) 68, Lymphocytes % (Manual) 21, Monocytes % (Manual) 9, Eosinophils % ( Manual) 2, Basophils % (Manual) 0, Band Neutrophils 0, Platelet Estimate IncreasedH, Platelet Morphology , Giant Platelets Occasional, Polychromasia 2+, Hypochromasia 2+, Anisocytosis 3+, Microcytosis 2+, Prothrombin Time 12.3H, Prothromb Time International Ratio 1.2H, Activated Partial Thromboplast Time 27 , Sodium Level 144, Potassium Level 4.0, Chloride Level 108H, Carbon Dioxide Level 26, Anion Gap 10, Blood Urea Nitrogen 9, Creatinine 0.7, Estimat Glomerular Filtration Rate > 60, Glucose Level 116H, Uric Acid 3.6, Calcium Level 9.2, Phosphorus Level 4.0, Magnesium Level 1.9, Total Bilirubin 0.3, Aspartate Amino Transf (AST/SGOT) 95H, Alanine Aminotransferase (ALT/SGPT) 19, Alkaline Phosphatase 386H, Total Creatine Kinase 631H, Troponin I 0.035, Total Protein 6.6, Albumin 2.1L, Globulin 4.5, Albumin/Globulin Ratio 0.5L 06/09/19 15:00: Lactic Acid Level 2.40H 06/09/19 16:15: Urine Color Yellow, Urine Appearance Clear, Urine pH 5, Urine Specific [place] 1.015, Urine Protein Negative, Urine Glucose (UA) Negative, Urine Ketones Negative, Urine Blood Negative, Urine Nitrite Negative, Urine Bilirubin Negative , Urine Urobilinogen 1H, Urine Leukocyte Esterase Negative 06/09/19 16:45: Lactic Acid Level 1.80 06/10/19 00:57: Troponin I 0.057H 06/10/19 08:00: Troponin I 0.034, White Blood Count 6.5, Red Blood Count 4.58, Hemoglobin 9.0L, Hematocrit 31.2L, Mean Corpuscular Volume 68L, Mean Corpuscular Hemoglobin 19.8L , Mean Corpuscular Hemoglobin Concent 29.0L, Red Cell Distribution Width 21.0H, Platelet Count 402, Mean Platelet Volume 7.2, Neutrophils (%) (Auto) 71.9, Lymphocytes (%) (Auto) 11.8L, Monocytes (%) (Auto) 12.2H, Eosinophils (%) (Auto ) 2.6, Basophils (%) (Auto) 1.5, Sodium Level 145, Potassium Level 4.3, Chloride Level 110H, Carbon Dioxide Level 26, Anion Gap 9, Blood Urea Nitrogen 5L, Creatinine 0.5L, Estimat Glomerular Filtration Rate > 60, Glucose Level 83, Calcium Level 8.6, Magnesium Level 1.7L, Total Creatine Kinase 499H Height (Feet): 5 Height (Inches): 5.00 Weight (Pounds): 90 General Appearance: WD/WN, no apparent distress, alert, other - Cachectic EENT: PERRL/EOMI, normal ENT inspection Neck: non-tender, normal alignment, supple Cardiovascular: normal peripheral pulses, normal rate, regular rhythm, no JVD Respiratory/Chest: chest wall non-tender, lungs clear Abdomen: normal bowel sounds, non tender, soft, no organomegaly, no mass Extremities: normal range of motion, non-tender, normal inspection Edema: other - No lower extremity edema bilaterally Neurologic: tree inspector II-XII grossly normal, no motor/sensory deficits, alert, oriented x 3, responsive, normal mood/affect Skin: normal pigmentation, warm/dry Telly Glover D.O. Jun 10, 2019 13:04
--- NOTE | 2019-06-10 13:30 | NUR ---
NURSE NOTES: Dilaudid was pulled from Pyxis at 10:59am and given to patient around 11:05am. Did pain assessment on eMAR but system didn't save.
--- NOTE | 2019-06-10 15:24 | NUR ---
NURSE NOTES: Patient doesn't want to take [place] 10/325 for pain, instead she wants to take breakthrough dilaudid
[2019-06-10 16:00] VITALS: BP 118/72
--- NOTE | 2019-06-10 16:33 | NUR ---
CASE MANAGEMENT:REVIEW 59 YR OLD FEMALE BIBA FROM HOME CC: DIZZINESS. BP IN THE 80'S PMH: PANCREATIC CANCER SI: HYPOTENSION. NEAR SYNCOPE 97.4 120 20 102/60 97% ON RA H/H-10.1/34.8 TCK+361 IS: 250CC NS BOLUS GIVEN IN FIELD 1L NS BOLUS IV MORPHINE CTA CHEST CHEST XRAY : TO TELEMETRY IS: IV DILAUDID Q4HRS PRN LIDOCAINE PATCH QD MS CONTIN PO Q12 NORCO 5/325 PO Q6HRS PRN NORCO 10/325 PO Q6HRS PRN ELIQUIS PO BID IVF@100/HR
--- NOTE | 2019-06-10 16:34 | NUR ---
DISCHARGE PLANNING: PATIENT WAS REFERRED TO [facility] THEY ARE UNABLE TO ACCEPT CALLED O ANYI (BOX BLANK MACHINE OPERATOR HELPER) T: [phone] LEFT A MESSAGE FOR ANYI TO REFER A HOME HEALTH SERVICE FOR DISCHARGE AWAITING A CALL BACK Addendum: 06/13/19 at 1456 by FELICIANO HORAN LVN PATIENT NOT ACCEPTED BY [facility] PATIENT REFERRED TO [facility] BY INSURANCE T: [phone] F:[phone] AWAITING APPROVAL SPOKE TO ANYI FOSTER FOR THIS PATIENT SHE WILL FOLLOW UP WITH [facility]
[2019-06-10 20:00] VITALS: BP 144/77
--- NOTE | 2019-06-10 20:07 | NUR ---
HAND-OFF: Report given to Isamar/RN, Patient is asleep, in stable condition. Endorsed plan of care.
--- NOTE | 2019-06-10 20:50 | NUR ---
NURSE NOTES: Received report from URVASHI Walker Patient is awake, Lying semi-magana's, resting comfortably. A/O x4. On room air, breathing even and unlabored. No acute distress/SOB noted at this time. Able to make needs known. family member at bedside/ IV site patent, no bleeding or infiltration noted. Encouraged to use call light when needed. Bed locked, in lowest position, bed alarm on, side-rails up x3. Call light within reach. Will continue plan of care.
[2019-06-11] VITALS: BP 124/76
[2019-06-11] MEDS: HYDROmorphone 1mg/ml Carpuject IVP PRN ×4 (02:09→23:20)
[2019-06-11] MEDS: HYDROcodone/Acetamin 10/325 tab ORAL PRN ×2 (06:13→14:30)
[2019-06-11 07:08] LABS: EOSINOPHILS % (AUTO) 2.1 % (0.0-3.0); HEMATOCRIT 29.4 % (37.0-47.0); HEMOGLOBIN 8.6 G/DL (12.0-16.0); MEAN CORPUSCULAR VOLUME 68 FL (80-99); NEUTROPHILS % (AUTO) 73.9 % (45.0-75.0); PLATELET COUNT 401 K/UL (150-450); RED BLOOD COUNT 4.36 M/UL (4.20-5.40); RED CELL DISTRIBUTION WIDTH 20.6 % (11.6-14.8); WHITE BLOOD COUNT 7.4 K/UL (4.8-10.8)
[2019-06-11 07:20] LABS: ANION GAP 9 mmol/L (5-15); BLOOD UREA NITROGEN 2 mg/dL (7-18); CALCIUM 8.6 MG/DL (8.5-10.1); CARBON DIOXIDE 26 MMOL/L (21-32); CHLORIDE 109 MMOL/L (98-107); CREATININE 0.5 MG/DL (0.55-1.30); PHOSPHORUS 3.7 MG/DL (2.5-4.9); POTASSIUM 3.8 MMOL/L (3.5-5.1); SODIUM 144 MMOL/L (136-145)
--- NOTE | 2019-06-11 07:42 | NUR ---
HAND-OFF: Report given to URVASHI Cm.
--- NOTE | 2019-06-11 07:47 | NUR ---
NURSE NOTES: Received report from URVASHI Quevedo. Pt in bed, asleep, respirations appear regular and unlabored, family at bedside, bed in lowest position, call light within reach, IV fluid running according to order.
[2019-06-11 08:00] VITALS: BP 119/77
[2019-06-11] MEDS: MS Contin 15mg tab ORAL SCH ×2 (09:07→20:41)
[2019-06-11] MEDS: Eliquis 2.5mg tablet ORAL SCH ×2 (09:07→18:08)
--- NOTE | 2019-06-11 10:10 | NUR ---
NURSE NOTES: Page on-call for Murali gaytan Mg 1.7
[2019-06-11] MEDS: HYDROcodone/Acetamin 5/325 tab ORAL PRN (11:41)
[2019-06-11 12:00] VITALS: BP 123/83
--- NOTE | 2019-06-11 12:35 | General Progress Note ---
Assessment/Plan Problem List: (1) Hypotension ICD Codes: I95.9 - Hypotension, unspecified SNOMED: 36828984 (2) Sinus tachycardia ICD Codes: R00.0 - Tachycardia, unspecified SNOMED: 72629823 (3) Near syncope ICD Codes: R55 - Syncope and collapse SNOMED: 122758234 (4) Failure to thrive SNOMED: 95582897 (5) Palpitations ICD Codes: R00.2 - Palpitations SNOMED: 42502545 (6) Elevated alkaline phosphatase level ICD Codes: R74.8 - Abnormal levels of other serum enzymes SNOMED: 188008603 (7) Elevated CK ICD Codes: R74.8 - Abnormal levels of other serum enzymes SNOMED: 336026583 (8) Thrombocytosis ICD Codes: D47.3 - Essential (hemorrhagic) thrombocythemia SNOMED: 5689687 (9) Microcytic anemia ICD Codes: D50.9 - Iron deficiency anemia, unspecified SNOMED: 542940057 (10) Acidosis ICD Codes: E87.2 - Acidosis SNOMED: 19273306 Status: progressing Assessment/Plan: Is a 59 year old female with a past medical history of stage IV pancreatic cancer with metastases to bones and lungs on chemotherapy presenting with palpitations, hypotension which resolved with IV fluids #hypotension, suspect 2/2 dehydration. no other SIRS criteria. Do not suspect infection at this point. Resolved- #lactic acidosis secondary to malignancy and dehydration. Do not suspect infection at this point -resolved #near syncope -no further episodes while inpatient #palpitations suspected 2/2 dehydration -resolved #sinus tachycardia suspected 2/2 dehydration -resolved > 2D echocardiogram normal > Troponins negative -Admit to telemetry Blood cultures x2- no growth Holding off on antibiotics for now Normal saline at 100 cc/h #Right leg pain, rule out DVT. - Duplex venous ultrasound of right leg - negative #Stage IV pancreatic cancer mets to bone and lung on chemotherapy >PCP Dr. Wilhelm >Oncologist Aden Bauman - outpatient f/u #Low back pain, suspect muscle strain, bone mass. -Continue home pain regimen - Start lidocaine patch #Hypomagnesemia -Replete PRN FENPPX DVTPPX: lovenox GI PPX: None needed Fluids: As above Diet: Regualr Lines: Peripheral PT/OT: pending Code status: Fulle Dispo: Home with home health vs. SNF Reason for Continued Hospitalization: Hypotension. Patient and family would like to wait until we can to be discharged so that someone is able to take care of her. 38 minutes spent on this encounter. Discussed with RN, patient, ED staff. > 50% spent on counseling and care coordination. Time of note may not reflect time patient was seen. Subjective Allergies: Coded Allergies: No Known Allergies (Unverified , 06/09/19) Subjective No acute events overnight per nursing. Patient's blood pressure remained normal. Weakness is improved. Patient is complaining of low back pain paraspinal. She has had this for approximately 2 months. No trauma. Constant , 5 out of 10, nonradiating. Described as aching sensation. Denies any bowel or bladder incontinence. Or saddle anesthesia. Objective Last 24 Hour Vital Signs Date Time Temp Pulse Resp B/P (MAP) Pulse Ox O2 Delivery O2 Flow Rate FiO2 06/11/19 12:00 99.2 96 17 123/83 (96) 98 06/11/19 10:47 98.7 06/11/19 10:47 98.7 06/11/19 09:37 98.7 06/11/19 09:00 Room Air 06/11/19 08:00 98.7 101 18 119/77 (91) 100 100 06/11/19 07:40 93 06/11/19 04:00 100 06/11/19 00:00 94 06/11/19 00:00 98.7 101 20 124/76 (92) 99 06/10/19 21:00 Room Air 06/10/19 20:00 98.9 110 20 144/77 (99) 98 06/10/19 20:00 108 06/10/19 16:00 96.6 105 20 118/72 (87) 98 06/10/19 16:00 103 Intake and Output 06/10/19 06/11/19 19:00 07:00 Intake Total 140 ml 150 ml Balance 140 ml 150 ml Intake Oral 140 ml 150 ml # Voids 3 3 # Bowel Movements 1 2 Laboratory Tests 06/11/19 06:01: White Blood Count 7.4, Red Blood Count 4.36, Hemoglobin 8.6L, Hematocrit 29.4L, Mean Corpuscular Volume 68L, Mean Corpuscular Hemoglobin 19.8L, Mean Corpuscular Hemoglobin Concent 29.3L, Red Cell Distribution Width 20.6H, Platelet Count 401, Mean Platelet Volume 7.6, Neutrophils (%) (Auto) 73.9, Lymphocytes (%) (Auto) 11.0L, Monocytes (%) (Auto) 12.0H, Eosinophils (%) (Auto ) 2.1, Basophils (%) (Auto) 1.0, Sodium Level 144, Potassium Level 3.8, Chloride Level 109H, Carbon Dioxide Level 26, Anion Gap 9, Blood Urea Nitrogen 2L, Creatinine 0.5L, Estimat Glomerular Filtration Rate > 60, Glucose Level 86, Calcium Level 8.6, Phosphorus Level 3.7, Magnesium Level 1.7L Height (Feet): 5 Height (Inches): 5.00 Weight (Pounds): 90 Telly Glover D.O. Jun 11, 2019 12:35
--- NOTE | 2019-06-11 12:49 | Cardiology Report ---
APPROVED REPORT EKG Measurement Heart [id number] Sinus tachycardia Biatrial enlargement Abnormal ECG
--- NOTE | 2019-06-11 13:02 | Cardiology Report ---
APPROVED REPORT EXAM: Two-dimensional and M-mode echocardiogram with Doppler and color Doppler. INDICATION Hypotension M-Mode DIMENSIONS IVSd0.9 (0.7-1.1cm)Left Atrium (MM)2.9 (1.6-4.0cm) LVDd2.6 (3.5-5.6cm)Aortic Root2.3 (2.0-3.7cm) PWd0.9 (0.7-1.1cm)Aortic Cusp Exc.1.4 (1.5-2.0cm) LVDs1.1 (2.5-4.0cm) PWs0.9 cm Technically difficult study due to poor acoustic windows. Study quality precludes accurate assessment of regional wall motion. Normal left ventricular chamber size, systolic function and wall motion. Left ventricular ejection fraction estimated to be 55 %. All other cardiac chamber sizes are within normal limits. Focal aortic valve sclerosis with adequate cusp excursion. Thickened mitral valve leaflets with normal excursion. Mitral annulus and aortic root calcification. Pulmonic valve not visualized. Normal tricuspid valve structure. IVC is normal in size with physiological collapse. A color flow and spectral Doppler study was performed and revealed: Mitral diastolic velocities suggest mild left ventricular diastolic dysfunction (Grade I). Trace tricuspid regurgitation. Tricuspid systolic velocities suggests peak right ventricular systolic pressure of 8 mmHg.
--- NOTE | 2019-06-11 15:49 | NUR ---
HAND-OFF: Report given to URVASHI Jordan.
[2019-06-11 16:02] VITALS: BP 132/91
--- NOTE | 2019-06-11 16:12 | NUR ---
NURSE NOTES: Received patient from Telemetry ,patient alert and oriented. Respirations unlabored. IV fluids infusing as ordered.patient skin intact,noted patient left arm larger compared to patient right arm.Per report,from URVASHI Cm DR is aware. Right arm elevated on pillow,radial pulse strong.No redness noted to the left arm .Patient complaining ofback and abdominal pain,will give pain medication as ordered.Patient has her personal belongings including her cell phone and cell phone industrial court magistrate.Bed alarm is on,call light within reach.
[2019-06-11] MEDS ORDERED: HYDROcodone/Acetamin 5/325 tab ORAL PRN (17:40)
--- NOTE | 2019-06-11 19:15 | NUR ---
NURSE NOTES: Report taken from URVASHI Jordan. Patient is awake and in bed, A&Ox4. No signs of distress on room air. Has bouts of extreme pain through her low back and abdominal area, due to her history of cancer, 04/19. States that she cannot lay or sit when the pain begins, continue to monitor. IV site c/d/i and patent, running NS @ 100mls/hr. Skin intact. Rt UE is swollen with no pitting edema or warmth, no pain with swelling. Continue to monitor UE. Bed in lowest position, call light within reach. States that she is hoping to go home within the next 48hrs as she resumes chemo treatment this upcoming week.
--- NOTE | 2019-06-11 19:27 | NUR ---
HAND-OFF: Report given to Bruno LANDIN.
[2019-06-11 20:00] VITALS: BP 132/90
--- NOTE | 2019-06-11 20:11 | General Progress Note ---
Assessment/Plan Problem List: (1) Hypotension ICD Codes: I95.9 - Hypotension, unspecified SNOMED: 95755403 (2) Sinus tachycardia ICD Codes: R00.0 - Tachycardia, unspecified SNOMED: 39160057 (3) Near syncope ICD Codes: R55 - Syncope and collapse SNOMED: 700876422 (4) Failure to thrive SNOMED: 59546146 (5) Palpitations ICD Codes: R00.2 - Palpitations SNOMED: 58935499 (6) Elevated alkaline phosphatase level ICD Codes: R74.8 - Abnormal levels of other serum enzymes SNOMED: 379137319 (7) Elevated CK ICD Codes: R74.8 - Abnormal levels of other serum enzymes SNOMED: 514912935 (8) Thrombocytosis ICD Codes: D47.3 - Essential (hemorrhagic) thrombocythemia SNOMED: 7744420 (9) Microcytic anemia ICD Codes: D50.9 - Iron deficiency anemia, unspecified SNOMED: 106463486 (10) Acidosis ICD Codes: E87.2 - Acidosis SNOMED: 09593366 Status: progressing Assessment/Plan: Is a 59 year old female with a past medical history of stage IV pancreatic cancer with metastases to bones and lungs on chemotherapy presenting with palpitations, hypotension which resolved with IV fluids #hypotension, suspect 2/2 dehydration. no other SIRS criteria. Do not suspect infection at this point. Resolved- #lactic acidosis secondary to malignancy and dehydration. Do not suspect infection at this point -resolved #near syncope -no further episodes while inpatient #palpitations suspected 2/2 dehydration -resolved #sinus tachycardia suspected 2/2 dehydration -improving > 2D echocardiogram normal > Troponins negative -Admit to telemetry -Blood cultures x2- no growth -Holding off on antibiotics for now. No sign of infection. -Normal saline at 100 cc/h #Right leg pain, rule out DVT. - Duplex venous ultrasound of right leg - negative #Stage IV pancreatic cancer mets to bone and lung on chemotherapy >PCP Dr. Wilhelm >Oncologist Aden Bauman - outpatient f/u #Low back pain, suspect muscle strain, bone mass. -Continue home pain regimen - Continue lidocaine patch #Hypomagnesemia -Replete PRN FENPPX DVTPPX: lovenox GI PPX: None needed Fluids: As above Diet: Regualr Lines: Peripheral PT/OT: pending Code status: [place] Dispo: Home with home health. To be discharged home tomorrow when family is available Reason for Continued Hospitalization: Hypotension. Patient and family would like to wait until we can to be discharged so that someone is able to take care of her. 37 minutes spent on this encounter. Discussed with RN, patient, ED staff. > 50% spent on counseling and care coordination. Time of note may not reflect time patient was seen. Subjective Date patient seen: Jun 11, 2019 Constitutional: Reports: no symptoms; Denies: chills, diaphoresis, fever, malaise, weakness, other HEENT: Denies: eye pain, blurred vision, tearing, double vision, ear pain, ear discharge, nose pain, nose congestion, throat pain, throat swelling, mouth pain , mouth swelling, other Cardiovascular: Denies: chest pain, edema, irregular heart rate, lightheadedness, palpitations, syncope, other Respiratory: Denies: cough, orthopnea, shortness of breath, SOB with excertion , SOB at rest, sputum, stridor, wheezing, other Gastrointestinal/Abdominal: Denies: abdomen distended, abdominal pain, black stools, tarry stools, blood in stool, constipated, diarrhea, difficulty swallowing, nausea, poor appetite, poor fluid intake, rectal bleeding, vomiting , other Genitourinary: Denies: burning, discharge, frequency, flank pain, hematuria, incontinence, pain, urgency, other Neurologic/Psychiatric: Denies: anxiety, depressed, emotional problems, headache, numbness, paresthesia, pre-existing deficit, seizure, tingling, tremors, weakness, other Endocrine: Denies: excessive sweating, flushing, intolerance to cold, intolerance to heat, increased hunger, increased thirst, increased urine, unexplained weight gain, unexplained weight loss, other Hematologic/Lymphatic: Denies: anemia, easy bleeding, easy bruising, other Allergies: Coded Allergies: No Known Allergies (Unverified , 06/09/19) Subjective No acute events overnight per nursing. Patient continues to complain of low back pain despite lidocaine patch. She continues to be somewhat tachycardic up to 100. Sinus on telemetry. Does not feel ready to go home yet. No other complaints. Objective Last 24 Hour Vital Signs Date Time Temp Pulse Resp B/P (MAP) Pulse Ox O2 Delivery O2 Flow Rate FiO2 06/11/19 16:02 99.9 110 20 132/91 (105) 98 06/11/19 12:00 99.2 96 17 123/83 (96) 98 06/11/19 11:47 96 06/11/19 10:47 98.7 06/11/19 10:47 98.7 06/11/19 09:37 98.7 06/11/19 09:00 Room Air 06/11/19 08:00 98.7 101 18 119/77 (91) 100 100 06/11/19 07:40 93 06/11/19 04:00 100 06/11/19 00:00 94 06/11/19 00:00 98.7 101 20 124/76 (92) 99 06/10/19 21:00 Room Air Intake and Output 06/10/19 06/11/19 18:59 06:59 Intake Total 310 ml 150 ml Balance 310 ml 150 ml Intake Oral 260 ml 150 ml IV Total 50 ml # Voids 3 3 # Bowel Movements 1 2 Laboratory Tests 06/11/19 06:01: White Blood Count 7.4, Red Blood Count 4.36, Hemoglobin 8.6L, Hematocrit 29.4L, Mean Corpuscular Volume 68L, Mean Corpuscular Hemoglobin 19.8L, Mean Corpuscular Hemoglobin Concent 29.3L, Red Cell Distribution Width 20.6H, Platelet Count 401, Mean Platelet Volume 7.6, Neutrophils (%) (Auto) 73.9, Lymphocytes (%) (Auto) 11.0L, Monocytes (%) (Auto) 12.0H, Eosinophils (%) (Auto ) 2.1, Basophils (%) (Auto) 1.0, Sodium Level 144, Potassium Level 3.8, Chloride Level 109H, Carbon Dioxide Level 26, Anion Gap 9, Blood Urea Nitrogen 2L, Creatinine 0.5L, Estimat Glomerular Filtration Rate > 60, Glucose Level 86, Calcium Level 8.6, Phosphorus Level 3.7, Magnesium Level 1.7L Height (Feet): 5 Height (Inches): 5.00 Weight (Pounds): 90 General Appearance: WD/WN, no apparent distress, alert, other - Cachectic EENT: PERRL/EOMI, normal ENT inspection, TMs normal Neck: non-tender, normal alignment, supple Cardiovascular: normal peripheral pulses, regular rhythm, other - Tachycardic Respiratory/Chest: chest wall non-tender, lungs clear, normal breath sounds Abdomen: normal bowel sounds, non tender, soft Extremities: normal range of motion, non-tender, normal inspection Edema: other - No lower extremity edema bilaterally Neurologic: warehouse incentive selector II-XII grossly normal, no motor/sensory deficits, alert, oriented x 3, responsive Skin: normal pigmentation, warm/dry Telly Glover D.O. Jun 11, 2019 20:11
[2019-06-11] MEDS ORDERED: Miralax 17gm pkt ORAL PRN (21:00)
[2019-06-12] MEDS: HYDROcodone/Acetamin 10/325 tab ORAL PRN ×2 (03:18→15:45)
[2019-06-12 04:00] VITALS: BP 139/85
--- NOTE | 2019-06-12 07:21 | NUR ---
HAND-OFF: Report given to URVASHI Montelongo. Patient is awake and in bed, VS stable. Endorsed to RN about LUE swelling.
[2019-06-12] MEDS: HYDROmorphone 1mg/ml Carpuject IVP PRN ×4 (07:48→21:36)
[2019-06-12] MEDS: Eliquis 2.5mg tablet ORAL SCH ×2 (07:49→17:59)
[2019-06-12 08:00] VITALS: BP 112/78
--- NOTE | 2019-06-12 08:00 | NUR ---
NURSE NOTES: received patient in bed, awake, by her side. patient complains of lower back pain, given IV pain medication. Patient refuses Lidoderm patch, says it doesn't help with her pain. RAC IV access, receives NS @ 100cc/hr. Bed locked at the lowest position possible, call light within easy reach, siderails up x2. Will continue to monitor patient and follow up with the plan of care.
--- NOTE | 2019-06-12 08:42 | Discharge Instructions ---
Discharge Instructions Discharge Instructions Follow up with: PCP next week. Oncologist as scheduled. Services at Discharge: home health services Diet: regular Additional Diet Information: Drink 8-10 glasses of water per day Resume Normal Activity?: Yes Activity: resume normal activities Telly Glover D.O. Jun 12, 2019 08:41
[2019-06-12] MEDS: MS Contin 15mg tab ORAL SCH ×2 (11:39→20:41)
[2019-06-12 12:00] VITALS: BP 128/87
--- NOTE | 2019-06-12 14:41 | General Progress Note ---
Assessment/Plan Problem List: (1) Hypotension ICD Codes: I95.9 - Hypotension, unspecified SNOMED: 76080345 (2) Sinus tachycardia ICD Codes: R00.0 - Tachycardia, unspecified SNOMED: 44069115 (3) Near syncope ICD Codes: R55 - Syncope and collapse SNOMED: 957941565 (4) Failure to thrive SNOMED: 44156110 (5) Palpitations ICD Codes: R00.2 - Palpitations SNOMED: 51386928 (6) Elevated alkaline phosphatase level ICD Codes: R74.8 - Abnormal levels of other serum enzymes SNOMED: 438884632 (7) Elevated CK ICD Codes: R74.8 - Abnormal levels of other serum enzymes SNOMED: 548308247 (8) Thrombocytosis ICD Codes: D47.3 - Essential (hemorrhagic) thrombocythemia SNOMED: 1330974 (9) Microcytic anemia ICD Codes: D50.9 - Iron deficiency anemia, unspecified SNOMED: 670275130 (10) Acidosis ICD Codes: E87.2 - Acidosis SNOMED: 28899684 Status: progressing Assessment/Plan: Is a 59 year old female with a past medical history of stage IV pancreatic cancer with metastases to bones and lungs on chemotherapy presenting with palpitations, hypotension which resolved with IV fluids #hypotension, suspect 2/2 dehydration. no other SIRS criteria. Do not suspect infection. Resolved with IV fluids #lactic acidosis secondary to malignancy and dehydration. Do not suspect infection-resolved #near syncope -no further episodes while inpatient #palpitations suspected 2/2 dehydration -resolved #sinus tachycardia suspected 2/2 dehydration -improving > 2D echocardiogram normal > Troponins negative -Admit to telemetry -Blood cultures x2- no growth -Holding off on antibiotics for now. No sign of infection. -Normal saline at 100 cc/h #Right leg pain, rule out DVT. - Duplex venous ultrasound of right leg - negative #Left upper extremity swelling. Rule out DVT. Doubt since patient is on Eliquis -Duplex venous ultrasound of left upper extremity -Patient already on Eliquis 2.5mg PO BID. If positive for DVT may need to increase dose. Will need to discuss with pharmacy #Stage IV pancreatic cancer mets to bone and lung on chemotherapy >PCP Dr. Wilhelm >Oncologist Aden Bauman - outpatient f/u on Thursday06/14/19 #Chronic pain 2/2 cancer #Opiate dependence #Low back pain, suspect muscle strain, bone mass. -Continue home pain regimen - Continue lidocaine patch -Cures reviewed on 06/12/2019: Patient received 30-day supply of MS Contin 15mg PO BID and [place] 10-325mg PO QID on 05/02/19. She is due for refill. Will prescribe 2-week refill of these medications on discharge. #Hypomagnesemia -Replete PRN FENPPX DVTPPX: eliquis GI PPX: None needed Fluids: As above Diet: Regualr Lines: Peripheral PT/OT: pending Code status: Full Dispo: Home with home health. Discharge home today if no DVT. Reason for Continued Hospitalization: Hypotension. 39 minutes spent on this encounter. Discussed with RN, patient, ED staff. > 50% spent on counseling and care coordination. Time of note may not reflect time patient was seen. Subjective Date patient seen: Jun 12, 2019 Constitutional: Denies: chills, diaphoresis, fever, malaise, weakness, other HEENT: Denies: eye pain, blurred vision, tearing, double vision, ear pain, ear discharge, nose pain, nose congestion, throat pain, throat swelling, mouth pain , mouth swelling, other Cardiovascular: Denies: chest pain, edema, irregular heart rate, lightheadedness, palpitations, syncope, other Respiratory: Denies: cough, orthopnea, shortness of breath, SOB with excertion , SOB at rest, sputum, stridor, wheezing, other Gastrointestinal/Abdominal: Denies: abdomen distended, abdominal pain, black stools, tarry stools, blood in stool, constipated, diarrhea, difficulty swallowing, nausea, poor appetite, poor fluid intake, rectal bleeding, vomiting , other Genitourinary: Denies: burning, discharge, frequency, flank pain, hematuria, incontinence, pain, urgency, other Neurologic/Psychiatric: Denies: anxiety, depressed, emotional problems, headache, numbness, paresthesia, pre-existing deficit, seizure, tingling, tremors, weakness, other Endocrine: Denies: excessive sweating, flushing, intolerance to cold, intolerance to heat, increased hunger, increased thirst, increased urine, unexplained weight gain, unexplained weight loss, other Hematologic/Lymphatic: Denies: anemia, easy bleeding, easy bruising, other Allergies: Coded Allergies: No Known Allergies (Unverified , 06/09/19) Subjective No acute events overnight per nursing. Patient feels much better today. Still complaining of distant pain especially in the lower back. Lidocaine patch has not helped. Patient also complaining of worsening left upper extremity swelling. She states this is been going on for the past 2 days and got worse after patient had IV fluids running there. No other complaints. Objective Last 24 Hour Vital Signs Date Time Temp Pulse Resp B/P (MAP) Pulse Ox O2 Delivery O2 Flow Rate FiO2 06/12/19 12:45 98.6 06/12/19 12:09 98.6 06/12/19 12:00 99.3 101 20 128/87 (101) 99 06/12/19 09:00 Room Air 06/12/19 08:00 98.2 100 22 112/78 (89) 97 06/12/19 04:00 98.6 98 18 139/85 (103) 98 06/11/19 21:00 Room Air 06/11/19 20:00 98.6 103 20 132/90 (104) 97 06/11/19 16:02 99.9 110 20 132/91 (105) 98 Intake and Output 06/11/19 06/12/19 19:00 07:00 Intake Total 560 ml 425 ml Balance 560 ml 425 ml Intake Oral 360 ml 325 ml IV Total 200 ml 100 ml # Voids 2 2 # Bowel Movements 1 2 Height (Feet): 5 Height (Inches): 5.00 Weight (Pounds): 90 General Appearance: WD/WN, no apparent distress, alert EENT: PERRL/EOMI, normal ENT inspection Neck: non-tender, normal alignment, supple Cardiovascular: normal peripheral pulses, normal rate, regular rhythm, no JVD Respiratory/Chest: chest wall non-tender, lungs clear, normal breath sounds Abdomen: normal bowel sounds, non tender, soft, no organomegaly, no mass Extremities: normal range of motion, non-tender, other - Left upper extremity with 2+ pitting edema. 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 Jun 12, 2019 14:41
[2019-06-12 16:00] VITALS: BP 118/78
--- NOTE | 2019-06-12 19:26 | NUR ---
HAND-OFF: Report given to URVASHI De Guzman.
--- NOTE | 2019-06-12 19:58 | NUR ---
NURSE NOTES: Report taken from URVASHI Montelongo. Patient is asleep, arousable to name and light touch. A&Ox4. No signs of distress on room air. She has been having cycles of extreme pain beginning in her low back and radiating to her LE and abdomen, 04/19. Skin is intact. RUE shows signs of swelling, venous duplex scheduled for the am. IV site c/d/i and patent, running NS at 100mls/hr. States that she begins chemo this week and would like to be home before then. Bed in lowest position, call light within reach.
[2019-06-12 20:00] VITALS: BP 105/65
[2019-06-12 23:54] VITALS: BP 122/78
[2019-06-13] MEDS: HYDROcodone/Acetamin 10/325 tab ORAL PRN (03:18)
[2019-06-13] MEDS: HYDROmorphone 1mg/ml Carpuject IVP PRN ×2 (03:59→10:09)
[2019-06-13 04:00] VITALS: BP 121/78
--- NOTE | 2019-06-13 04:29 | NUR ---
NURSE NOTES: Patient had one of her episodes of severe pain. Administered [place], but pain continued at 10/10, dilaudid given. Patient also running low grade fever, 100.4, Tylenol given, will reassess patient. Give zofran with pain meds when available.
--- NOTE | 2019-06-13 07:24 | NUR ---
NURSE NOTES: Received report from Bruno LANDIN. Pt in bed asleep but arousable. and no c/o pain and No acute distress noted. On room air. Her at the bedside. IV site in RAC 20G running with NS@10ml/hr patent and asymptomatic. Bed in lowest position and locked. Call light within easy reach. Will continue to plan of care.
--- NOTE | 2019-06-13 07:27 | NUR ---
HAND-OFF: Report given to URVASHI Salas. Patient is asleep, at bedside. Endorsed to RN about sarah duplex today.
[2019-06-13 08:00] VITALS: BP 118/80
[2019-06-13] MEDS: Eliquis 2.5mg tablet ORAL SCH (09:02)
[2019-06-13] MEDS: MS Contin 15mg tab ORAL SCH (09:02)
--- NOTE | 2019-06-13 09:45 | NUR ---
NURSE NOTES: Dr. You paged for discharge order per the patient's request.
--- NOTE | 2019-06-13 10:00 | NUR ---
NURSE NOTES: Dr. Dawson paged for discharge order and episode of T 100.4F previous shift.
[2019-06-13] MEDS ORDERED: ZOFRAN4 M3 ORAL (10:41)
--- NOTE | 2019-06-13 10:56 | NUR ---
Discharge: Patient is being discharged from medical care. Awake, alert and oriented x4. After care instructions, including referral to community resources were given. Patient verbalized understanding of After care instructions; at this time patient does not request equipment or placement. She will discharge with her at the bedside and she states "i will see my primary doctor and oncologist tomorrow. Home health referrals and RX for [place] 10/325, Zofran, home meds(#[id number])and MS ES given to the patient and her . Patient signed patient consent in the medical record for patient destination upon discharge. All medical devices such as IV and ID band were removed. Patient ambulated out with all personal belongings with her and RN's assist via wheelchair.
--- NOTE | 2019-06-13 14:21 | Discharge Summary ---
Discharge Summary Hospital Course Date of Admission Jun 09, 2019 at 17:31 Date of Discharge Jun 13, 2019 at 11:06 Admitting Diagnosis hypotension HPI Merlin Hernández is a 59 year old female who was admitted on Jun 09, 2019 at 17:31 for Hypotension Hospital Course 59 year old female with a past medical history of stage IV pancreatic cancer with metastases to bones and lungs on chemotherapy presenting with palpitations , hypotension which resolved with IV fluids #hypotension, suspect 2/2 dehydration. no other SIRS criteria. Do not suspect infection. Resolved with IV fluids #lactic acidosis secondary to malignancy and dehydration. Do not suspect infection-resolved #near syncope -no further episodes while inpatient #palpitations suspected 2/2 dehydration -resolved #sinus tachycardia suspected 2/2 dehydration -improving > 2D echocardiogram normal > Troponins negative -Admited to telemetry -Blood cultures x2- no growth -Holding off on antibiotics for now. No sign of infection. -Normal saline at 100 cc/h #Right leg pain, rule out DVT. - Duplex venous ultrasound of right leg - negative #Left upper extremity swelling. Rule out DVT. Doubt since patient is on Eliquis -Duplex venous ultrasound of left upper extremity negative for DVT -Patient already on Eliquis 2.5mg PO BID. -Per patient and this is chronic, multiple US negative for DVT, also had a CT chest at outside facility negative. ?Lymphatic drainages issues. Patient will follow up with PCP #Stage IV pancreatic cancer mets to bone and lung on chemotherapy >PCP Dr. Wilhelm >Oncologist Aden Bauman - outpatient f/u on Thursday06/14/19 #Chronic pain 2/2 cancer #Opiate dependence #Low back pain, suspect muscle strain, bone mass. -Continue home pain regimen - Continue lidocaine patch -Cures reviewed on 06/12/2019: Patient received 30-day supply of MS Contin 15mg PO BID and [place] 10-325mg PO QID on 05/02/19. She is due for refill. Will prescribe 2-week refill of these medications on discharge. #Hypomagnesemia -Replete PRN FENPPX DVTPPX: eliquis GI PPX: None needed Fluids: As above Diet: Regualr Lines: Peripheral PT/OT: pending Code status: Full Today she is alert and oriented x 3, Lungs cta bl, heart S1S2, LE: no edema, There is significant LUE edema compared to left. Dispo: Home with home health. Discharge home today if no DVT. Reason for Continued Hospitalization: Hypotension. 35 minutes spent on this encounter. Discussed with RN, patient, ED staff. > 50% spent on counseling and care coordination. Time of note may not reflect time patient was seen. Discharge Medications Continued Medications: Apixaban (Eliquis) 2.5 Mg Tablet 2.5 MG PO BID, TAB (This prescription has been renewed) Hydrocodone Bit/Acetaminophen 10-325* ([place] 10-325*) 1 Each Tablet 1 TAB ORAL Q6H PRN for Breakthrough Pain, #10 TAB 0 Refills (This prescription has been renewed) PRN PAIN Ibuprofen* (Motrin Ib*) 200 Mg Tablet 200 MG ORAL Q6H, #30 TAB 0 Refills (This prescription has been renewed) Morphine HCl (Morphine Sulfate ER) 15 Mg Tablet.er 15 MG ORAL Q12HR, TAB (This prescription has been renewed) Omeprazole (Omeprazole) 20 Mg Capsule.dr 20 MG ORAL DAILY, CAP (This prescription has been renewed) Omeprazole (Omeprazole) 20 Mg Capsule.dr 20 MG ORAL DAILY, CAP (This prescription has been renewed) Ondansetron* (Zofran*) 4 Mg Tablet 4 MG ORAL Q6H PRN for Nausea & Vomiting, TAB (This prescription has been renewed ) Discharge Condition Upon Discharge: stable Discharge Disposition Patient was discharged to home Discharge Diagnoses: (1) Sinus tachycardia Discharge Instructions Discharge Instructions Follow up with: PCP next week. Oncologist as scheduled. Services Upon Discharge: home health services Additional Diet Information: Drink 8-10 glasses of water per day Activity: resume normal activities Sourav Dawson M.D. Jun 13, 2019 14:21
--- NOTE | 2019-06-13 14:43 | NUR ---
CASE MANAGEMENT:REVIEW 06/11/19 SI: HYPOTENSION. NEAR SYNCOPE PMH: PANCREATIC CANCER 98.7 101 18 119/77 100% ON RA H/H-8.6/29.4; BUN 2; CREAT 0.5; MG 1.7 IS: IV DILAUDID Q4HRS PRN LIDOCAINE PATCH QD MS CONTIN PO Q12 [place] 5/325 PO Q6HRS PRN [place] 10/325 PO Q6HRS PRN ELIQUIS PO BID IVF@100/HR : 3E MED SURG CASE MANAGEMENT:REVIEW 06/12/19 SI: HYPOTENSION. NEAR SYNCOPE PMH: PANCREATIC CANCER 98.2 100 22 112/78 97% ON RA IS: IV DILAUDID Q4HRS PRN LIDOCAINE PATCH QD MS CONTIN PO Q12 [place] 5/325 PO Q6HRS PRN [place] 10/325 PO Q6HRS PRN ELIQUIS PO BID IVF@100/HR : 3E MED SURG CASE CASE MANAGEMENT:REVIEW 06/13/19 SI: HYPOTENSION. NEAR SYNCOPE PMH: PANCREATIC CANCER 99.5 104 20 118/80 98% ON RA IS: IV DILAUDID Q4HRS PRN LIDOCAINE PATCH QD MS CONTIN PO Q12 [place] 5/325 PO Q6HRS PRN [place] 10/325 PO Q6HRS PRN ELIQUIS PO BID IVF@100/HR : 3E MED SURG
--- NOTE | 2019-06-13 14:56 | NUR ---
DISCHARGE PLANNING: PATIENT DENIED BY [facility] SPOKE WITH CRISTIAN DE SANTIAGO ABOUT PATIENT DISCHARGE PATIENT REFERRED TO [facility] T: [phone] F: [phone] WAITING FOR APPROVAL ANYI WILL FOLLOW UP ON THIS PATIENTS CARE FOR [facility] T: [phone] F: [phone]
--- NOTE | 2019-06-14 14:23 | Diagnostic Imaging Report ---
APPROVED REPORT CPT Code: 19716 Present Symptoms Upper Extremity Edema: Left LEFT UPPER EXTREMITY (Deep venous system): Imaging reveals patency of the internal jugular, subclavian, axillary and brachial, radial and ulnar veins. Imaging also reveals patency of the cephalic and basilic veins. Doppler indicates normal spontaneous flow within these venous segments.
--- NOTE | 2019-06-14 14:25 | Diagnostic Imaging Report ---
APPROVED REPORT CPT Code: 07608 Present Symptoms Comments: Pain BILATERAL: Imaging reveals a patent deep venous system bilaterally. There is no evidence of thrombus within the common femoral, superficial femoral, popliteal or tibial segments. The greater saphenous veins are within normal limits. Doppler indicates normal spontaneous flow within these segments.
--- NOTE | 2019-06-14 14:28 | NUR ---
*-* INSURANCE *-* ALL AVIALABLE CLINICALS HAVE BEEN FAXED TO: [facility] TRACKING#[id number] CM:ANYI #[phone] FAX#[phone] REVIEWS/CLINICALS Addendum: 06/14/19 at 1429 by MARCI SMITH CM DISCHARGE SUMMARY HAS BEEN FAXED
== END 2019-06-13 11:06 | disposition home or self-care (01) | DRG 422 ==
LOC: EDBD 13:59 → EMR 14:33 → 2E 17:31 → EDBEDREQ 18:38 → EDBEDREQSVC 18:48 → 3E 06-11 15:24
DX: E86.0 Dehydration (principal); R55 Syncope and collapse; R00.0 Tachycardia, unspecified; I95.9 Hypotension, unspecified; E87.2 Acidosis; R62.7 Adult failure to thrive; R00.2 Palpitations; C25.9 Malignant neoplasm of pancreas, unspecified; C78.00 Secondary malignant neoplasm of unspecified lung; C79.51 Secondary malignant neoplasm of bone; Z68.1 Body mass index [BMI] 19.9 or less, adult; D50.9 Iron deficiency anemia, unspecified; D69.6 Thrombocytopenia, unspecified; M79.604 Pain in right leg; E83.42 Hypomagnesemia; M54.5 Low back pain; G89.3 Neoplasm related pain (acute) (chronic); M79.89 Other specified soft tissue disorders
CPT/HCPCS: 36415; 71045; 71275; 80048; 80053; 81003; 82550; 83605; 83735; 84100; 84484; 84550; 85007; 85025; 85610; 85730; 87040; 93005; 93306; 93970; 93971; 96361; 96374; 99285; J2405; J7030